=== PATIENT | male | born 1965 | race American Indian/Alaskan Native ===

== ENCOUNTER 2019-06-11 07:38 | Inpatient (IN) | payer OTHER ==
[2019-06-11] MEDS ORDERED: ASPIRIN PO ONE (07:44)
[2019-06-11 08:05] LABS: Basophils # (Auto) 0.1 K/mm3 (0.0-0.1); Eosinophils # (Auto) 0.3 K/mm3 (0.0-0.4); Eosinophils % (Auto) 5.3 % (0.0-4.3); Hematocrit 40.1 % (35.5-45.6); Hemoglobin 13.3 gm/dl (11.8-15.2); Lymphocytes # (Auto) 2.5 K/mm3 (1.2-5.4); Lymphocytes % (Auto) 39.7 % (13.4-35.0); Mean Corpuscular HGB Conc 33 % (32-34); Mean Corpuscular Volume 83 fl (84-94); Monocytes # (Auto) 0.7 K/mm3 (0.0-0.8); Monocytes % (Auto) 10.4 % (0.0-7.3); Platelet Count 238 K/mm3 (140-440); Red Blood Count 4.85 M/mm3 (3.65-5.03); Red Cell Distribution Width 14.1 % (13.2-15.2)
--- NOTE | 2019-06-11 08:08 | XRay Report ---
CHEST 1 VIEW 06/11/2019 7:59 AM INDICATION / CLINICAL INFORMATION: Chest Pain. COMPARISON: None available. FINDINGS: SUPPORT DEVICES: None. HEART / MEDIASTINUM: No significant abnormality. LUNGS / PLEURA: No significant pulmonary or pleural abnormality. No pneumothorax. ADDITIONAL FINDINGS: No significant additional findings. IMPRESSION: No acute findings. Signer Name: Nestor Mock MD Signed: 06/11/2019 8:03 AM Workstation Name: [id number]
[2019-06-11 08:25] LABS: BUN/Creatinine Ratio 14; Blood Urea Nitrogen 10 mg/dL (9-20); Calcium 9.6 mg/dL (8.4-10.2); Hemolysis Index 14
--- NOTE | 2019-06-11 08:58 | Emergency Department Report ---
ED Chest Pain HPI - General Chief Complaint: Chest Pain Stated Complaint: CHEST PAIN/RT LEG/LFT ARM PAIN Time Seen by Provider: 06/11/19 08:28 Source: patient Mode of arrival: Ambulatory Limitations: No Limitations - History of Present Illness Initial Comments: 53-year-old male with past medical history of non-insulin dependent diabetes, asthma, diabetic neuropathy, hypertension, obesity, and ? heart valve defect presents to the hospital complaints chest pain 2 days. Pain is constant across chest. Pain is described as a moderate tightness with associated tightness to left arm. Pain is worse with palpation and movement. Denies shortness of fany ath. Did have episode of nausea vomiting yesterday. He complains of chronic right knee pain secondary to arthritis. He denies calf tenderness or unilateral leg edema. Patient was incarcerated in [place] for 5 years and released in February. He just ran out of his mediations prescribed by the senior living one day ago. He supposed take lisinopril and metformin. He does not take aspirin daily. He denies smoking or drug use. Positive family history of CAD. 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 Apparently his father had a similar defect. Severity scale (0 -10): 6 - Related Data Allergies Allergy/AdvReac Type Severity Reaction Status Date / Time No Known Allergies Allergy Verified 06/11/19 08:32 Heart Score - HEART Score History: Moderately suspicious EKG: Non-specific Age: 45-65 Risk factors: > 3 risk factors or hx of atherosclerotic disease Troponin: < normal limit HEART Score: 5 ED Review of Systems ROS: Stated complaint: CHEST PAIN/RT LEG/LFT ARM PAIN Other details as noted in HPI Comment: All other systems reviewed and negative ED Past Medical Hx - Past Medical History Hx Diabetes: Yes Hx Asthma: Yes Additional medical history: Diabetic neuropathy - Surgical History Past Surgical History?: No - Social History Smoking Status: Never Smoker Substance Use Type: None ED Physical Exam - General Limitations: No Limitations - Other Other exam information: General: No limitations, patient is alert in no acute distress Head exam: Atraumatic, normocephalic Eyes exam: Normal appearance, pupils equal reactive to light, extraocular movements intact ENT: Moist mucous membrane, normal oropharynx Neck exam: Normal inspection, full range of motion, no meningismus nontender Respiratory exam: Clear to auscultation bilateral, no wheezes, rales, crackles Cardiovascular: Normal rate and rhythm, normal heart sounds. Tenderness to bilateral chest wall Abdomen: Soft, nondistended, and nontender, with normal bowel sounds, no rebound, or guarding Extremity: Full range of motion normal inspection no deformity. Pain with movement of right knee. No calf tenderness or edema. Right ankle monitoring bracelet Back: Normal Inspection, full range of motion, no tenderness Neurologic: Alert, oriented x3, cranial nerves intact, no motor or sensory deficit Psychiatric: normal affect, normal mood Skin: Warm, dry, intact ED Course Vital Signs 06/11/19 06/11/19 06/11/19 07:43 08:11 08:15 Temperature 97.9 F Pulse Rate 82 84 Respiratory 17 17 Rate Blood Pressure 163/100 Blood Pressure 183/106 [Left] O2 Sat by Pulse 98 100 100 Oximetry 06/11/19 08:17 Temperature Pulse Rate Respiratory 12 Rate Blood Pressure Blood Pressure [Left] O2 Sat by Pulse 100 Oximetry KOBE score - Kobe Score Age > 65: (0) No Aspirin use within the Past 7 Days: (0) No 3 or more CAD Risk Factors: (1) Yes 2 or more Angina events in past 24 hrs: (1) Yes Known CAD with more than 50% Stenosis: (0) No Elevated Cardiac Markers: (0) No ST Deviation Greater than 0.5mm: (0) No KOBE Score: 2 ED Medical Decision Making - Lab Data Result diagrams: 06/11/19 07:50 06/11/19 07:50 Lab Results 06/11/19 06/11/19 Range/Units 07:50 07:50 WBC 6.4 (4.5-11.0) K/mm3 RBC 4.85 (3.65-5.03) M/mm3 Hgb 13.3 (11.8-15.2) gm/dl Hct 40.1 (35.5-45.6) % MCV 83 L (84-94) fl MCH 27 L (28-32) pg MCHC 33 (32-34) % RDW 14.1 (13.2-15.2) % Plt Count 238 (140-440) K/mm3 Lymph % (Auto) 39.7 H (13.4-35.0) % [place] % (Auto) 10.4 H (0.0-7.3) % Eos % (Auto) 5.3 H (0.0-4.3) % Baso % (Auto) 1.0 (0.0-1.8) % Lymph # 2.5 (1.2-5.4) K/mm3 [place] # 0.7 (0.0-0.8) K/mm3 Eos # 0.3 (0.0-0.4) K/mm3 Baso # 0.1 (0.0-0.1) K/mm3 Seg Neutrophils % 43.6 (40.0-70.0) % Seg Neutrophils # 2.8 (1.8-7.7) K/mm3 Sodium 142 (137-145) mmol/L Potassium 4.1 (3.6-5.0) mmol/L Chloride 103.0 (98-107) mmol/L Carbon Dioxide 28 (22-30) mmol/L Anion Gap 15 mmol/L BUN 10 (9-20) mg/dL Creatinine 0.7 L (0.8-1.5) mg/dL Estimated GFR > 60 ml/min BUN/Creatinine Ratio 14 % Glucose 141 H (75-100) mg/dL Calcium 9.6 (8.4-10.2) mg/dL Troponin T < 0.010 (0.00-0.029) ng/mL - EKG Data -: EKG Interpreted by Ct EKG shows normal: sinus rhythm, axis (qrs 2), QRS complexes (qrsd 81), ST-T waves (no stemi) Rate: normal (75) - EKG Data When compared to previous EKG there are: previous EKG unavailable - Radiology Data Radiology results: report reviewed cxr: naf - Medical Decision Making Patient describes chest tightness without shortness of breath but also has nausea, vomiting and left arm symptoms. Several cardiac risk factors. Reports medication noncompliant. Will admit for further inpatient cardiac evaluation - Differential Diagnosis costochondritis, VA, unstable angina, atypical chest pain, pulmonary emboli Critical Care Time: No Critical care attestation.: If time is entered above; I have spent that time in minutes in the direct care of this critically ill patient, excluding procedure time. ED Disposition Clinical Impression: Chest pain, HTN (hypertension), Diabetes, Noncompliance with medication regimen Disposition: OP ADMIT IP TO THIS HOSP Is pt being admited?: Yes Does the pt Need Aspirin: Yes Condition: Stable Time of Disposition: 08:57 (Dr Mullins/hosp)
[2019-06-11] MEDS: HumaLOG SUB-Q SCH (17:58)
[2019-06-12] MEDS: HumaLOG SUB-Q SCH ×2 (00:06→09:02)
[2019-06-12] MEDS ORDERED: TYLENOL PO PRN (00:12)
[2019-06-12] MEDS ORDERED: SODIUM CHLORIDE FLUSH SYRINGE 10 ML IV PRN (00:12)
[2019-06-12] MEDS ORDERED: PERCOCET 5/325 PO PRN (00:12)
[2019-06-12 05:02] VITALS: BP 141/94
[2019-06-12 05:47] LABS: Creatine Kinase MB 4.1 ng/mL (0.0-4.0)
[2019-06-12] MEDS ORDERED: LEXISCAN IV ONE ×2 (07:49→07:55)
--- NOTE | 2019-06-12 14:46 | Treadmill Report ---
INDICATION: Chest pain. ORDERING PHYSICIAN: Sudarshan Mullins MD FINDINGS: This is a suboptimal quality study due to motion artifact noted on the stress imaging portion. There is evidence of a small and moderately reversible apical and mid inferior wall defect. Diaphragmatic attenuation cannot be excluded. The left ventricular systolic function is measured at 53% with normal wall motion and wall thickening on gated imaging. The left ventricular size is mildly dilated. IMPRESSION: 1. Suboptimal perfusion scan limited by motion artifact noted on the rest and stress imaging as well as increased liver uptake with potential attenuation of the inferior wall. 2. There is evidence of a small moderately reversible apical and mid inferior wall defect. 3. Mildly dilated left ventricle with an ejection fraction measured at 53% and normal wall motion. Clinical correlation is recommended. [facility]# [id number] DAVE/RISHI
--- NOTE | 2019-06-12 18:11 | History and Physical Report ---
History of Present Illness Date of examination: 06/12/19 Date of admission: 06/11/19 09:04 Chief complaint: Chest pain for 2 days History of present illness: 53-year-old male with past medical history of non-insulin dependent diabetes, asthma, diabetic neuropathy, hypertension, obesity, and heart valve defect presents to the hospital complaints chest pain 2 days. Pain is constant across chest. Pain is described as a moderate tightness with associated tightness to left arm. Pain is worse with palpation and movement. Denies shortness of breath. Did have episode of nausea vomiting yesterday. He complains of chronic right knee pain secondary to arthritis. He is supposed take lisinopril and metformin. He does not take aspirin daily. Severity scale (0 -10): 6 Past Medical History Hx Diabetes: Yes Hx Asthma: Yes Additional medical history: Diabetic neuropathy Surgical History Past Surgical History?: No Social History Smoking Status: Never Smoker Substance Use Type: None Review of Systems ROS: Stated complaint: CHEST PAIN/RT LEG/LFT ARM PAIN Other details as noted in HPI Comment: All other systems reviewed and negative Medications and Allergies Allergies Allergy/AdvReac Type Severity Reaction Status Date / Time No Known Allergies Allergy Verified 06/11/19 08:32 Home Medications Medication Instructions Recorded Confirmed Last Taken Type Lisinopril [Zestril TAB] 10 mg PO QDAY 06/11/19 06/11/19 Unknown History Metformin HCl [metFORMIN] 1,000 mg PO BID 06/11/19 06/11/19 Unknown History glipiZIDE [Glucotrol] 5 mg PO QDAY 06/11/19 06/11/19 Unknown History Exam - Constitutional Vitals: Temp Pulse Resp BP Pulse Ox 98.1 F 87 16 141/94 94 06/12/19 03:59 06/12/19 08:00 06/12/19 03:59 06/12/19 03:59 06/12/19 03:59 General appearance: Present: no acute distress, well-nourished - EENT Eyes: Present: PERRL ENT: hearing intact, clear oral mucosa - Neck Neck: Present: supple, normal ROM - Respiratory Respiratory effort: normal Respiratory: bilateral: CTA - Cardiovascular Heart rate: 78 Rhythm: regular Heart Sounds: Present: S1 & S2. Absent: rub, click - Extremities Extremities: no ischemia, pulses intact, pulses symmetrical, No edema Peripheral Pulses: within normal limits - Abdominal General gastrointestinal: Present: soft, non-tender, non-distended, normal bowel sounds Male genitourinary: Present: normal - Rectal Rectal Exam: deferred - Integumentary Integumentary: Present: clear, warm, dry - Musculoskeletal Musculoskeletal: gait normal, strength equal bilaterally - Psychiatric Psychiatric: appropriate mood/affect, intact judgment & insight - Neurologic Neurologic: CNII-XII intact, moves all extremities - Allied Health Allied health notes reviewed: nursing, case management Results - Labs CBC & Chem 7: 06/11/19 07:50 06/11/19 07:50 Labs: Laboratory Last Values WBC 6.4 K/mm3 (4.5-11.0) 06/11/19 07:50 RBC 4.85 M/mm3 (3.65-5.03) 06/11/19 07:50 Hgb 13.3 gm/dl (11.8-15.2) 06/11/19 07:50 Hct 40.1 % (35.5-45.6) 06/11/19 07:50 MCV 83 fl (84-94) L 06/11/19 07:50 MCH 27 pg (28-32) L 06/11/19 07:50 MCHC 33 % (32-34) 06/11/19 07:50 RDW 14.1 % (13.2-15.2) 06/11/19 07:50 Plt Count 238 K/mm3 (140-440) 06/11/19 07:50 Lymph % (Auto) 39.7 % (13.4-35.0) H 06/11/19 07:50 [place] % (Auto) 10.4 % (0.0-7.3) H 06/11/19 07:50 Eos % (Auto) 5.3 % (0.0-4.3) H 06/11/19 07:50 Baso % (Auto) 1.0 % (0.0-1.8) 06/11/19 07:50 Lymph # 2.5 K/mm3 (1.2-5.4) 06/11/19 07:50 [place] # 0.7 K/mm3 (0.0-0.8) 06/11/19 07:50 Eos # 0.3 K/mm3 (0.0-0.4) 06/11/19 07:50 Baso # 0.1 K/mm3 (0.0-0.1) 06/11/19 07:50 Seg Neutrophils % 43.6 % (40.0-70.0) 06/11/19 07:50 Seg Neutrophils # 2.8 K/mm3 (1.8-7.7) 06/11/19 07:50 Sodium 142 mmol/L (137-145) 06/11/19 07:50 Potassium 4.1 mmol/L (3.6-5.0) 06/11/19 07:50 Chloride 103.0 mmol/L (98-107) 06/11/19 07:50 Carbon Dioxide 28 mmol/L (22-30) 06/11/19 07:50 15 mmol/L 06/11/19 07:50 BUN 10 mg/dL (9-20) 06/11/19 07:50 0.7 mg/dL (0.8-1.5) L 06/11/19 07:50 Estimated GFR > 60 ml/min 06/11/19 07:50 14 % 06/11/19 07:50 Glucose 141 mg/dL (75-100) H 06/11/19 07:50 POC Glucose 122 (70-105) H 06/12/19 07:24 Calcium 9.6 mg/dL (8.4-10.2) 06/11/19 07:50 843 units/L (55-170) H 06/12/19 04:22 CK-MB (CK-2) 4.1 ng/mL (0.0-4.0) H 06/12/19 04:22 CK-MB (CK-2) Rel Index 0.4 (0-4) 06/12/19 04:22 < 0.010 ng/mL (0.00-0.029) 06/11/19 13:16 Cardiac Enzymes 06/12/19 Range/Units 04:22 Total Creatine Kinase 843 H (55-170) units/L CK-MB (CK-2) 4.1 H (0.0-4.0) ng/mL - Imaging and Cardiology EKG: report reviewed (Nsr ) Chest x-ray: report reviewed (naf) Assessment and Plan Advance Directives: Yes (Full code ) VTE prophylaxis?: Chemical Plan of care discussed with patient/family: Yes - Patient Problems (1) Chest pain Status: Acute Qualifiers: Chest pain type: unspecified Qualified Code(s): R07.9 - Chest pain, unspecified Plan to address problem: Chest pain work up Serial troponins and Lexiscan in Am (2) Diabetes Status: Chronic Qualifiers: Diabetes mellitus type: type 2 Plan to address problem: Cont Metformin and coverage (3) HTN (hypertension) Status: Chronic Qualifiers: Hypertension type: essential hypertension Qualified Code(s): I10 - Essential (primary) hypertension Plan to address problem: Cont antihuypertensives (4) Deep vein thrombosis (DVT) prophylaxis not tolerated by patient Status: Acute Plan to address problem: on Lovenox
--- NOTE | 2019-06-12 18:15 | Discharge Summary ---
Providers - Providers Date of Admission: 06/11/19 09:04 Date of discharge: 06/12/19 Attending physician: ANA LUISA CAROLINA [facility] Condition: Stable Hospital course: - Patient Problems (1) Chest pain Status: Acute Qualifiers: Chest pain type: unspecified Qualified Code(s): R07.9 - Chest pain, unspecified Plan to address problem Lexiscan --slight reversible defect in apical portion Needs follow up with cardiology Patient signed AMA (2) Diabetes Status: Chronic Qualifiers: Diabetes mellitus type: type 2 Plan to address problem: Cont Metformin and coverage (3) HTN (hypertension) Status: Chronic Qualifiers: Hypertension type: essential hypertension Qualified Code(s): I10 - Essential (primary) hypertension Plan to address problem: Cont antihuypertensives Disposition: DC- TO HOME OR SELFCARE - Discharge Diagnoses (1) Chest pain Status: Acute Qualifiers: Chest pain type: unspecified Qualified Code(s): R07.9 - Chest pain, unspecified (2) Diabetes Status: Chronic Qualifiers: Diabetes mellitus type: type 2 (3) HTN (hypertension) Status: Chronic Qualifiers: Hypertension type: essential hypertension Qualified Code(s): I10 - Essential (primary) hypertension (4) Deep vein thrombosis (DVT) prophylaxis not tolerated by patient Status: Acute Core Measure Documentation - Palliative Care Palliative Care/ Comfort Measures: Not Applicable - Core Measures Any of the following diagnoses?: none Exam - Constitutional Vitals: Temp Pulse Resp BP Pulse Ox 98.1 F 87 16 141/94 94 06/12/19 03:59 06/12/19 08:00 06/12/19 03:59 06/12/19 03:59 06/12/19 03:59 General appearance: Present: no acute distress, well-nourished - EENT Eyes: Present: PERRL ENT: hearing intact, clear oral mucosa - Neck Neck: Present: supple, normal ROM - Respiratory Respiratory effort: normal Respiratory: bilateral: CTA - Cardiovascular Heart Sounds: Present: S1 & S2. Absent: rub, click - Extremities Extremities: pulses symmetrical, No edema Peripheral Pulses: within normal limits - Abdominal General gastrointestinal: Present: soft, non-tender, non-distended, normal bowel sounds Male genitourinary: Present: normal - Integumentary Integumentary: Present: clear, warm, dry - Musculoskeletal Musculoskeletal: gait normal, strength equal bilaterally - Psychiatric Psychiatric: appropriate mood/affect, intact judgment & insight - Neurologic Neurologic: CNII-XII intact, moves all extremities Plan Activity: no restrictions Diet: low cholesterol, low salt, diabetic [facility]Primary Care Provider[facility] - 3-5 Days Forms: AMA Form
== END 2019-06-12 11:05 | disposition left against medical advice (07) | DRG 313 ==
LOC: ED 07:38 → 4A 09:04
PROVIDERS: ADMIT Internal Medicine; ATTEND Internal Medicine
DX: R07.89 Other chest pain (principal); I10 Essential (primary) hypertension; J45.909 Unspecified asthma, uncomplicated; E11.40 Type 2 diabetes mellitus with diabetic neuropathy, unspecified; E66.9 Obesity, unspecified; Z91.19 Patient's noncompliance with other medical treatment and regimen; Z53.21 Procedure and treatment not carried out due to patient leaving prior to being seen by health care provider; M17.11 Unilateral primary osteoarthritis, right knee; Z91.14 Patient's other noncompliance with medication regimen; Z68.36 Body mass index [BMI] 36.0-36.9, adult
CPT/HCPCS: 36415; 71045; 78452; 80048; 82550; 82553; 82962; 84484; 85025; 93005; 93010; 93017; 96374; G0378; A9502; J2785

== ENCOUNTER 2019-07-02 10:10 | Emergency (ER) | payer SELFPAY ==
[2019-07-02 10:44] VITALS: BP 155/95
[2019-07-02] MEDS ORDERED: NORCO 5/325 PO STA (16:20)
[2019-07-02] MEDS ORDERED: ROCEPHIN IM STA (16:20)
[2019-07-02] MEDS ORDERED: XYLOCAINE 1% MPF 5 mL INFILTRATI ONE (16:20)
--- NOTE | 2019-07-02 16:31 | Emergency Department Report ---
Abscess Boil HPI - HPI Chief Complaint: Extremity Injury, Lower Stated Complaint: RT LEG BITE/PAIN Time Seen by Provider: 07/02/19 13:45 Duration: >1 Week Location: Lower Extremity (right lower thigh posterior aspect) History: Yes Pain, Yes Purulent Drainage, Yes Insect Bite HPI: 53-year-old -[place] male with the abscess wound to the right posterior leg has been present just overall weak, not responding to his soap and water and ibuprofen. Reports that a wound was have a mild discharge as well. Home Medications: Home Medications Medication Instructions Recorded Confirmed Last Taken Lisinopril [Zestril TAB] 10 mg PO QDAY 06/11/19 06/11/19 Unknown Metformin HCl [metFORMIN] 1,000 mg PO BID 06/11/19 06/11/19 Unknown glipiZIDE [Glucotrol] 5 mg PO QDAY 06/11/19 06/11/19 Unknown Previous Rx's Medication Instructions Recorded Last Taken Type Chlorhexidine Gluconate [Hibiclens] 10 ml TP BID #240 liquid 07/02/19 Unknown Rx Ketorolac [Toradol] 10 mg PO Q6H PRN #15 tablet 07/02/19 Unknown Rx Ondansetron [Zofran ODT TAB] 8 mg PO Q12HR #14 tab.rapdis 07/02/19 Unknown Rx Sulfamethoxazole/Trimethoprim 2 each PO BID #40 tablet 07/02/19 Unknown Rx [Bactrim DS TAB] cephALEXin [Keflex] 500 mg PO Q6HR #40 capsule 07/02/19 Unknown Rx Allergies/Adverse Reactions: Allergies Allergy/AdvReac Type Severity Reaction Status Date / Time No Known Allergies Allergy Verified 07/02/19 10:23 ED Review of Systems ROS: Stated complaint: RT LEG BITE/PAIN Other details as noted in HPI Comment: All other systems reviewed and negative ED Past Medical Hx - Past Medical History Previous Medical History?: Yes Hx Diabetes: Yes Hx Asthma: Yes Hx HIV: No Additional medical history: Diabetic neuropathy - Surgical History Past Surgical History?: No - Social History Smoking Status: Former Smoker Substance Use Type: None - Medications Home Medications: Home Medications Medication Instructions Recorded Confirmed Last Taken Type Lisinopril [Zestril TAB] 10 mg PO QDAY 06/11/19 06/11/19 Unknown History Metformin HCl [metFORMIN] 1,000 mg PO BID 06/11/19 06/11/19 Unknown History glipiZIDE [Glucotrol] 5 mg PO QDAY 06/11/19 06/11/19 Unknown History Chlorhexidine Gluconate [Hibiclens] 10 ml TP BID #240 liquid 07/02/19 Unknown Rx Ketorolac [Toradol] 10 mg PO Q6H PRN #15 tablet 07/02/19 Unknown Rx Ondansetron [Zofran ODT TAB] 8 mg PO Q12HR #14 tab.rapdis 07/02/19 Unknown Rx Sulfamethoxazole/Trimethoprim 2 each PO BID #40 tablet 07/02/19 Unknown Rx [Bactrim DS TAB] cephALEXin [Keflex] 500 mg PO Q6HR #40 capsule 07/02/19 Unknown Rx ED Abscess Boil Physical Exam - Exam General: Vital signs noted. No distress. Alert and acting appropriately. Size: 3 cm Exam: Yes Tenderness, Yes Surrounding Cellulites/Erythema, Yes Normal Neurologic Exam, Yes Normal Circulation, No Fluctuance, No Lymphangitis, No Crepitation, No Heart Murmur Exam: 2.5 cm wound to the posterior thigh with some phalanges and induration. No tenderness is noted. No lymphadenopathy. No lymphangitis. I & D Note - I & D Note I & D Note: Discussed the regulation for incision and drainage. Patient opted to half antibodies and reevaluation ED Course Vital Signs 07/02/19 10:42 Temperature 97.9 F Pulse Rate 95 H Respiratory 18 Rate Blood Pressure 155/95 O2 Sat by Pulse 97 Oximetry Critical care attestation.: If time is entered above; I have spent that time in minutes in the direct care of this critically ill patient, excluding procedure time. ED Disposition Clinical Impression: Abscess, Cellulitis Disposition: DC-01 TO HOME OR SELFCARE Is pt being admited?: No Does the pt Need Aspirin: No Condition: Stable Instructions: Cellulitis (ED), Abscess (ED) Referrals: DONTAE AMIN MD [Primary Care Provider] - 3-5 Days (Wound reevaluation and 40-72 hours)
[2019-07-02] MEDS ORDERED: TRIPLE ANTIBIOTIC TP ONE ×2 (16:44→16:45)
== END 2019-07-02 16:57 | disposition home or self-care (01) ==
LOC: ED 10:10
DX: L02.415 Cutaneous abscess of right lower limb (principal); L03.115 Cellulitis of right lower limb; J45.909 Unspecified asthma, uncomplicated; E11.65 Type 2 diabetes mellitus with hyperglycemia; Z87.891 Personal history of nicotine dependence; Z79.899 Other long term (current) drug therapy
CPT/HCPCS: 96372; 99282; J0696; A6250

== ENCOUNTER 2021-09-03 10:18 | Emergency (ER) | payer SELFPAY ==
[2021-09-03] MEDS ORDERED: SODIUM CHLORIDE 0.9% 1000 ML 1,000 ML IV ONE (10:29)
[2021-09-03] MEDS ORDERED: INSULIN REGULAR, HUMAN 100 UNITS/1 ML IV ONE (10:29)
[2021-09-03 11:10] LABS: Basophils # (Auto) 0.1 K/mm3 (0.0-0.1); Basophils % (Auto) 1.3 % (0.0-1.8); Eosinophils # (Auto) 0.2 K/mm3 (0.0-0.4); Eosinophils % (Auto) 4.6 % (0.0-4.3); Hemoglobin 14.3 gm/dl (11.8-15.2); Lymphocytes # (Auto) 1.6 K/mm3 (1.2-5.4); Lymphocytes % (Auto) 36.9 % (13.4-35.0); Mean Corpuscular HGB Conc 33 % (32-34); Mean Corpuscular Volume 83 fl (84-94); Monocytes # (Auto) 0.4 K/mm3 (0.0-0.8); Monocytes % (Auto) 9.2 % (0.0-7.3); Platelet Count 215 K/mm3 (140-440); Red Blood Count 5.19 M/mm3 (3.65-5.03); Red Cell Distribution Width 13.3 % (13.2-15.2)
[2021-09-03 11:17] LABS: BUN/Creatinine Ratio 11; Blood Urea Nitrogen 9 mg/dL (9-20); Hemolysis Index 2
[2021-09-03 11:39] LABS: Bilirubin,Urine NEG (Negative); Blood,Urine NEG (Negative); Color,Urine Straw (Yellow); Protein,Urine <15 mg/dL mg/dL (Negative); Urobilinogen,Urine < 2.0 mg/dL (<2.0)
--- NOTE | 2021-09-03 12:07 | Emergency Department Report ---
ED General Adult HPI - General Chief complaint: Hyperglycemia Stated complaint: NEEDS DIABETIC MEDICINE Time Seen by Provider: 09/03/21 10:26 Source: patient Mode of arrival: Ambulatory Limitations: No Limitations - History of Present Illness Initial comments: This is a 55-year-old male nontoxic, well nourished in appearance, no acute signs of distress presents to the ED with c/o of polyuria and dry mouth times several days. Patient stated has been out of his Metformin 1000 mg twice daily for several days. Patient otherwise denies any other complaints or symptoms. Denies any flank or back pain. Denies abdominal pain. Denies any nausea, vomiting, chest pain, shortness of breath, headache, stiff neck, abdominal pain, pelvic pain fever or chills. Patient denies any allergies. -: days(s) Severity scale (0 -10): 0 Consistency: constant Improves with: none Worsens with: none Associated Symptoms: denies other symptoms. denies: confusion, chest pain, cough, diaphoresis, fever/chills, headaches, loss of appetite, malaise, nausea/vomiting, rash, seizure, shortness of breath, syncope, weakness Treatments Prior to Arrival: none - Related Data Home Medications Medication Instructions Recorded Confirmed Last Taken glipiZIDE [Glucotrol] 5 mg PO QDAY 06/11/19 06/11/19 Unknown lisinopriL [Zestril TAB] 10 mg PO QDAY 06/11/19 06/11/19 Unknown Previous Rx's Medication Instructions Recorded Last Taken Type Chlorhexidine Gluconate [Hibiclens] 10 ml TP BID #240 liquid 07/02/19 Unknown Rx Ketorolac [Toradol] 10 mg PO Q6H PRN #15 tablet 07/02/19 Unknown Rx Ondansetron [Zofran ODT TAB] 8 mg PO Q12HR #14 tab.rapdis 07/02/19 Unknown Rx Sulfamethoxazole/Trimethoprim 2 each PO BID #40 tablet 07/02/19 Unknown Rx [Bactrim DS TAB] cephALEXin [Keflex] 500 mg PO Q6HR #40 capsule 07/02/19 Unknown Rx Metformin HCl [metFORMIN] 1,000 mg PO BID #60 09/03/21 Unknown Rx Allergies Allergy/AdvReac Type Severity Reaction Status Date / Time No Known Allergies Allergy Verified 09/03/21 10:25 ED Review of Systems ROS: Stated complaint: NEEDS DIABETIC MEDICINE Other details as noted in HPI Comment: All other systems reviewed and negative Constitutional: denies: chills, fever Eyes: denies: eye pain, eye discharge, vision change ENT: denies: ear pain, throat pain Respiratory: denies: cough, shortness of breath, wheezing Cardiovascular: denies: chest pain, palpitations Endocrine: no symptoms reported Gastrointestinal: denies: abdominal pain, nausea, vomiting, diarrhea, constipation, hematemesis, melena, hematochezia Genitourinary: denies: urgency, dysuria, frequency, hematuria, discharge, testicular pain, testicular mass Musculoskeletal: denies: back pain, joint swelling, arthralgia Skin: denies: rash, lesions Neurological: denies: headache, weakness, paresthesias Psychiatric: denies: anxiety, depression Hematological/Lymphatic: denies: easy bleeding, easy bruising ED Past Medical Hx - Past Medical History Hx Diabetes: Yes Hx Asthma: Yes Hx HIV: No Additional medical history: Diabetic neuropathy - Social History Smoking Status: Former Smoker Substance Use Type: None - Medications Home Medications: Home Medications Medication Instructions Recorded Confirmed Last Taken Type glipiZIDE [Glucotrol] 5 mg PO QDAY 06/11/19 06/11/19 Unknown History lisinopriL [Zestril TAB] 10 mg PO QDAY 06/11/19 06/11/19 Unknown History Chlorhexidine Gluconate [Hibiclens] 10 ml TP BID #240 liquid 07/02/19 Unknown Rx Ketorolac [Toradol] 10 mg PO Q6H PRN #15 tablet 07/02/19 Unknown Rx Ondansetron [Zofran ODT TAB] 8 mg PO Q12HR #14 tab.rapdis 07/02/19 Unknown Rx Sulfamethoxazole/Trimethoprim 2 each PO BID #40 tablet 07/02/19 Unknown Rx [Bactrim DS TAB] cephALEXin [Keflex] 500 mg PO Q6HR #40 capsule 07/02/19 Unknown Rx Metformin HCl [metFORMIN] 1,000 mg PO BID #60 09/03/21 Unknown Rx ED Physical Exam - General Limitations: No Limitations General appearance: alert, in no apparent distress - Head Head exam: Present: atraumatic, normocephalic - Eye Eye exam: Present: normal appearance - Neck Neck exam: Present: normal inspection, full ROM. Absent: lymphadenopathy - Respiratory Respiratory exam: Absent: respiratory distress - Cardiovascular Cardiovascular Exam: Present: regular rate - GI/Abdominal GI/Abdominal exam: Present: soft, normal bowel sounds. Absent: distended, tenderness - Extremities Exam Extremities exam: Present: full ROM - Back Exam Back exam: Present: normal inspection, full ROM. Absent: tenderness, CVA tenderness (R), CVA tenderness (L), muscle spasm, paraspinal tenderness, vertebral tenderness, rash noted - Neurological Exam Neurological exam: Present: alert, oriented X3, normal gait - Psychiatric Psychiatric exam: Present: normal affect, normal mood - Skin Skin exam: Present: warm, dry, intact, normal color. Absent: rash ED Course Vital Signs 09/03/21 10:24 Temperature 98.1 F Pulse Rate 94 H Respiratory 18 Rate Blood Pressure 160/88 O2 Sat by Pulse 97 Oximetry - Reevaluation(s) Reevaluation #1: 09/03/21 12:05 Patient is speaking in full sentences with no signs of distress noted. ED Medical Decision Making - Lab Data Result diagrams: 09/03/21 10:32 09/03/21 10:32 Lab Results 09/03/21 09/03/21 09/03/21 Range/Units 10:23 10:32 10:32 WBC 4.4 L (4.5-11.0) K/mm3 RBC 5.19 H (3.65-5.03) M/mm3 Hgb 14.3 (11.8-15.2) gm/dl Hct 43.0 (35.5-45.6) % MCV 83 L (84-94) fl MCH 28 (28-32) pg MCHC 33 (32-34) % RDW 13.3 (13.2-15.2) % Plt Count 215 (140-440) K/mm3 Lymph % (Auto) 36.9 H (13.4-35.0) % [place] % (Auto) 9.2 H (0.0-7.3) % Eos % (Auto) 4.6 H (0.0-4.3) % Baso % (Auto) 1.3 (0.0-1.8) % Lymph # (Auto) 1.6 (1.2-5.4) K/mm3 [place] # (Auto) 0.4 (0.0-0.8) K/mm3 Eos # (Auto) 0.2 (0.0-0.4) K/mm3 Baso # (Auto) 0.1 (0.0-0.1) K/mm3 Seg Neutrophils % 48.0 (40.0-70.0) % Seg Neutrophils # 2.1 (1.8-7.7) K/mm3 VBG pH (7.320-7.420) Sodium 137 (137-145) mmol/L Potassium 4.3 (3.6-5.0) mmol/L Chloride 100.4 (98-107) mmol/L Carbon Dioxide 26 (22-30) mmol/L Anion Gap 15 mmol/L BUN 9 (9-20) mg/dL Creatinine 0.8 (0.8-1.3) mg/dL Estimated GFR > 60 ml/min BUN/Creatinine Ratio 11 % Glucose 363 H (75-100) mg/dL POC Glucose 355 H (70-105) mg/dL Calcium 10.0 (8.4-10.2) mg/dL Urine Color (Yellow) Urine Turbidity (Clear) Urine pH (5.0-7.0) Ur Specific [place] (1.003-1.030) Urine Protein (Negative) mg/dL Urine Glucose (UA) (Negative) mg/dL Urine Ketones (Negative) mg/dL Urine Blood (Negative) Urine Nitrite (Negative) Urine Bilirubin (Negative) Urine Urobilinogen (<2.0) mg/dL Ur Leukocyte Esterase (Negative) Urine WBC (Auto) (0.0-6.0) /HPF Urine RBC (Auto) (0.0-6.0) /HPF 09/03/21 09/03/21 Range/Units 10:32 11:29 WBC (4.5-11.0) K/mm3 RBC (3.65-5.03) M/mm3 Hgb (11.8-15.2) gm/dl Hct (35.5-45.6) % MCV (84-94) fl MCH (28-32) pg MCHC (32-34) % RDW (13.2-15.2) % Plt Count (140-440) K/mm3 Lymph % (Auto) (13.4-35.0) % [place] % (Auto) (0.0-7.3) % Eos % (Auto) (0.0-4.3) % Baso % (Auto) (0.0-1.8) % Lymph # (Auto) (1.2-5.4) K/mm3 [place] # (Auto) (0.0-0.8) K/mm3 Eos # (Auto) (0.0-0.4) K/mm3 Baso # (Auto) (0.0-0.1) K/mm3 Seg Neutrophils % (40.0-70.0) % Seg Neutrophils # (1.8-7.7) K/mm3 VBG pH 7.361 (7.320-7.420) Sodium (137-145) mmol/L Potassium (3.6-5.0) mmol/L Chloride (98-107) mmol/L Carbon Dioxide (22-30) mmol/L Anion Gap mmol/L BUN (9-20) mg/dL Creatinine (0.8-1.3) mg/dL Estimated GFR ml/min BUN/Creatinine Ratio % Glucose (75-100) mg/dL POC Glucose (70-105) mg/dL Calcium (8.4-10.2) mg/dL Urine Color Straw (Yellow) Urine Turbidity Clear (Clear) Urine pH 6.0 (5.0-7.0) Ur Specific [place] 1.029 (1.003-1.030) Urine Protein <15 mg/dl (Negative) mg/dL Urine Glucose (UA) >=500 (Negative) mg/dL Urine Ketones Tr (Negative) mg/dL Urine Blood Neg (Negative) Urine Nitrite Neg (Negative) Urine Bilirubin Neg (Negative) Urine Urobilinogen < 2.0 (<2.0) mg/dL Ur Leukocyte Esterase Neg (Negative) Urine WBC (Auto) 2.0 (0.0-6.0) /HPF Urine RBC (Auto) 1.0 (0.0-6.0) /HPF Lab Results 09/03/21 09/03/21 09/03/21 Range/Units 10:23 10:32 10:32 WBC 4.4 L (4.5-11.0) K/mm3 RBC 5.19 H (3.65-5.03) M/mm3 Hgb 14.3 (11.8-15.2) gm/dl Hct 43.0 (35.5-45.6) % MCV 83 L (84-94) fl MCH 28 (28-32) pg MCHC 33 (32-34) % RDW 13.3 (13.2-15.2) % Plt Count 215 (140-440) K/mm3 Lymph % (Auto) 36.9 H (13.4-35.0) % [place] % (Auto) 9.2 H (0.0-7.3) % Eos % (Auto) 4.6 H (0.0-4.3) % Baso % (Auto) 1.3 (0.0-1.8) % Lymph # (Auto) 1.6 (1.2-5.4) K/mm3 [place] # (Auto) 0.4 (0.0-0.8) K/mm3 Eos # (Auto) 0.2 (0.0-0.4) K/mm3 Baso # (Auto) 0.1 (0.0-0.1) K/mm3 Seg Neutrophils % 48.0 (40.0-70.0) % Seg Neutrophils # 2.1 (1.8-7.7) K/mm3 VBG pH (7.320-7.420) Sodium 137 (137-145) mmol/L Potassium 4.3 (3.6-5.0) mmol/L Chloride 100.4 (98-107) mmol/L Carbon Dioxide 26 (22-30) mmol/L Anion Gap 15 mmol/L BUN 9 (9-20) mg/dL Creatinine 0.8 (0.8-1.3) mg/dL Estimated GFR > 60 ml/min BUN/Creatinine Ratio 11 % Glucose 363 H (75-100) mg/dL POC Glucose 355 H (70-105) mg/dL Calcium 10.0 (8.4-10.2) mg/dL Urine Color (Yellow) Urine Turbidity (Clear) Urine pH (5.0-7.0) Ur Specific [place] (1.003-1.030) Urine Protein (Negative) mg/dL Urine Glucose (UA) (Negative) mg/dL Urine Ketones (Negative) mg/dL Urine Blood (Negative) Urine Nitrite (Negative) Urine Bilirubin (Negative) Urine Urobilinogen (<2.0) mg/dL Ur Leukocyte Esterase (Negative) Urine WBC (Auto) (0.0-6.0) /HPF Urine RBC (Auto) (0.0-6.0) /HPF 09/03/21 09/03/21 09/03/21 Range/Units 10:32 11:29 12:12 WBC (4.5-11.0) K/mm3 RBC (3.65-5.03) M/mm3 Hgb (11.8-15.2) gm/dl Hct (35.5-45.6) % MCV (84-94) fl MCH (28-32) pg MCHC (32-34) % RDW (13.2-15.2) % Plt Count (140-440) K/mm3 Lymph % (Auto) (13.4-35.0) % [place] % (Auto) (0.0-7.3) % Eos % (Auto) (0.0-4.3) % Baso % (Auto) (0.0-1.8) % Lymph # (Auto) (1.2-5.4) K/mm3 [place] # (Auto) (0.0-0.8) K/mm3 Eos # (Auto) (0.0-0.4) K/mm3 Baso # (Auto) (0.0-0.1) K/mm3 Seg Neutrophils % (40.0-70.0) % Seg Neutrophils # (1.8-7.7) K/mm3 VBG pH 7.361 (7.320-7.420) Sodium (137-145) mmol/L Potassium (3.6-5.0) mmol/L Chloride (98-107) mmol/L Carbon Dioxide (22-30) mmol/L Anion Gap mmol/L BUN (9-20) mg/dL Creatinine (0.8-1.3) mg/dL Estimated GFR ml/min BUN/Creatinine Ratio % Glucose (75-100) mg/dL POC Glucose 235 H (70-105) mg/dL Calcium (8.4-10.2) mg/dL Urine Color Straw (Yellow) Urine Turbidity Clear (Clear) Urine pH 6.0 (5.0-7.0) Ur Specific [place] 1.029 (1.003-1.030) Urine Protein <15 mg/dl (Negative) mg/dL Urine Glucose (UA) >=500 (Negative) mg/dL Urine Ketones Tr (Negative) mg/dL Urine Blood Neg (Negative) Urine Nitrite Neg (Negative) Urine Bilirubin Neg (Negative) Urine Urobilinogen < 2.0 (<2.0) mg/dL Ur Leukocyte Esterase Neg (Negative) Urine WBC (Auto) 2.0 (0.0-6.0) /HPF Urine RBC (Auto) 1.0 (0.0-6.0) /HPF - Medical Decision Making 55-year-old male who presents with diabetes and noncompliant with medication. Patient is stable and was examined by me. Labs has been obtained and does not show patient is in DKA. Patient received medical treatment in ER and fingerstick of glucose has significantly decreased prior to discharge. I will refill patient's medication. Patient was instructed to follow-up with a primary care doctor in 3-5 days or if symptoms worsen and continue return to emergency room as soon as possible. At time of discharge, the patient does not seem toxic or ill in appearance. No acute signs of distress noted. Patient agrees to discharge treatment plan of care. No further questions noted by the patient. Critical care attestation.: If time is entered above; I have spent that time in minutes in the direct care of this critically ill patient, excluding procedure time. ED Disposition Clinical Impression: Noncompliance with medication regimen Diabetes Qualifiers: Diabetes mellitus type: type 2 Diabetes mellitus group home insulin use: unspecified adjunct faculty for medical terminology insulin use status Diabetes mellitus complication status: without complication Qualified Code(s): E11.9 - Type 2 diabetes mellitus without complications Disposition: 01 HOME / SELF CARE / HOMELESS Is pt being admited?: No Does the pt Need Aspirin: No Condition: Stable Instructions: Type 2 Diabetes Mellitus, Diagnosis, Adult, Diabetes Mellitus Type 2 in Adults (ED) Additional Instructions: Follow-up with a primary care doctor in 3-5 days or if symptoms worsen and continue return to emergency room as soon as possible. Prescriptions: Metformin HCl [metFORMIN] 1,000 mg PO BID #60 Referrals: PRIMARY MD GIULIA [Referring] - 3-5 Days OREN MAHONEY MD [Staff Physician] - 3-5 Days Forms: Work/School Release Form(ED) Time of Disposition: 12:16
[2021-09-03 12:23] VITALS: BP 149/99
== END 2021-09-03 12:41 | disposition home or self-care (01) ==
LOC: ED 10:18
DX: E11.9 Type 2 diabetes mellitus without complications (principal); R35.89 Other polyuria; Z91.19 Patient's noncompliance with other medical treatment and regimen
CPT/HCPCS: 36415; 80048; 81001; 82805; 82962; 85025; 96361; 96374; 99283; J7030; J1815

== ENCOUNTER 2022-07-08 07:02 | Emergency (ER) | payer OTHER ==
[2022-07-08] MEDS ORDERED: SODIUM CHLORIDE 0.9% 1000 ML 1,000 ML IV ONE (07:49)
[2022-07-08 08:32] LABS: Basophils # (Auto) 0.1 K/mm3 (0.0-0.1); Basophils % (Auto) 1.8 % (0.0-1.8); Eosinophils # (Auto) 0.2 K/mm3 (0.0-0.4); Eosinophils % (Auto) 4.5 % (0.0-4.3); Hematocrit 44.4 % (35.5-45.6); Hemoglobin 14.1 gm/dl (11.8-15.2); Lymphocytes # (Auto) 1.7 K/mm3 (1.2-5.4); Lymphocytes % (Auto) 35.6 % (13.4-35.0); Mean Corpuscular HGB Conc 32 % (32-34); Mean Corpuscular Volume 85 fl (84-94); Monocytes # (Auto) 0.5 K/mm3 (0.0-0.8); Monocytes % (Auto) 10.5 % (0.0-7.3); Platelet Count 220 K/mm3 (140-440); Red Cell Distribution Width 13.4 % (13.2-15.2)
[2022-07-08 08:33] LABS: BUN/Creatinine Ratio 13; Blood Urea Nitrogen 10 mg/dL (9-20); Calcium 9.8 mg/dL (8.4-10.2); Hemolysis Index 22
[2022-07-08] MEDS ORDERED: INSULIN REGULAR, HUMAN 100 UNITS/1 ML IV ONE ×2 (08:33→08:36)
[2022-07-08 08:41] LABS: Color,Urine Colorless (Yellow)
[2022-07-08 08:43] LABS: Mucus,Urine FEW /HPF
[2022-07-08 08:48] LABS: RBC,Urine < 1.0 /HPF (0.0-6.0); WBC,Urine < 1.0 /HPF (0.0-6.0)
--- NOTE | 2022-07-08 09:42 | Emergency Department Report ---
ED General Adult HPI - General Chief complaint: Hyperglycemia Stated complaint: DIABETES/KNEE PAIN Time Seen by Provider: 07/08/22 08:32 Source: patient Mode of arrival: Ambulatory Limitations: No Limitations - History of Present Illness Initial comments: 56-year-old obese male with a past medical history of chronic bilateral knee arthritis and [id number] diabetes presents to the hospital complaining of bilateral knee pain and hyperglycemia. Patient has not been noncompliant with his metformin 1000 mg twice daily for least 1 year due to lack of insurance and PMD. Patient reports frequent urination and thirst without nausea, vomiting, or weakness. Patient has chronic moderate pain to bilateral knees worse with ambulation without acute injury. Severity scale (0 -10): 10 - Related Data Home Medications Medication Instructions Recorded Confirmed Last Taken glipiZIDE [Glucotrol] 5 mg PO QDAY 06/11/19 06/11/19 Unknown lisinopriL [Zestril TAB] 10 mg PO QDAY 06/11/19 06/11/19 Unknown Previous Rx's Medication Instructions Recorded Last Taken Type Chlorhexidine Gluconate [Hibiclens] 10 ml TP BID #240 liquid 07/02/19 Unknown Rx Ketorolac [Toradol] 10 mg PO Q6H PRN #15 tablet 07/02/19 Unknown Rx Ondansetron [Zofran ODT TAB] 8 mg PO Q12HR #14 tab.rapdis 07/02/19 Unknown Rx Sulfamethoxazole/Trimethoprim 2 each PO BID #40 tablet 07/02/19 Unknown Rx [Bactrim DS TAB] cephALEXin [Keflex] 500 mg PO Q6HR #40 capsule 07/02/19 Unknown Rx Metformin HCl [metFORMIN] 1,000 mg PO BID #60 tab 07/08/22 Unknown Rx Allergies Allergy/AdvReac Type Severity Reaction Status Date / Time No Known Allergies Allergy Verified 07/08/22 07:41 ED Review of Systems ROS: Stated complaint: DIABETES/KNEE PAIN Other details as noted in HPI Comment: All other systems reviewed and negative ED Past Medical Hx - Past Medical History Hx Diabetes: Yes Hx Asthma: Yes Hx HIV: No Additional medical history: Diabetic neuropathy - Social History Smoking Status: Never Smoker Substance Use Type: Alcohol - Medications Home Medications: Home Medications Medication Instructions Recorded Confirmed Last Taken Type glipiZIDE [Glucotrol] 5 mg PO QDAY 06/11/19 06/11/19 Unknown History lisinopriL [Zestril TAB] 10 mg PO QDAY 06/11/19 06/11/19 Unknown History Chlorhexidine Gluconate [Hibiclens] 10 ml TP BID #240 liquid 07/02/19 Unknown Rx Ketorolac [Toradol] 10 mg PO Q6H PRN #15 tablet 07/02/19 Unknown Rx Ondansetron [Zofran ODT TAB] 8 mg PO Q12HR #14 tab.rapdis 07/02/19 Unknown Rx Sulfamethoxazole/Trimethoprim 2 each PO BID #40 tablet 07/02/19 Unknown Rx [Bactrim DS TAB] cephALEXin [Keflex] 500 mg PO Q6HR #40 capsule 07/02/19 Unknown Rx Metformin HCl [metFORMIN] 1,000 mg PO BID #60 tab 07/08/22 Unknown Rx ED Physical Exam - General Limitations: No Limitations - Other Other exam information: General: No acute distress Head: Atraumatic Eyes: normal appearance ENT: Moist mucous membranes Neck: Normal appearance, no midline tenderness Chest: Clear to auscultation bilaterally CV: Regular rate and rhythm Abdomen: Soft, normal bowel sounds, nontender, nondistended, no rebound or guarding Back: Normal inspection Extremity: Normal inspection, No edema or warmth to bilateral knees. Full range of motion Neuro: Alert O x 3, no facial asymmetry, speech clear, no gross motor sensory deficit Psych: Appropriate behavior Skin: No rash ED Course Vital Signs 07/08/22 07/08/22 07/08/22 07:40 08:39 10:09 Temperature 98.6 F 98.6 F 98.6 F Pulse Rate 85 80 78 Respiratory 16 20 18 Rate Blood Pressure 168/95 Blood Pressure 145/106 168/95 160/113 [Right] O2 Sat by Pulse 98 96 97 Oximetry - Reevaluation(s) Reevaluation #1: 07/08/22 10:10 glucose 260, metformin provided prior to d/c ED Medical Decision Making - Lab Data Result diagrams: 07/08/22 08:00 07/08/22 08:00 Lab Results 07/08/22 07/08/22 07/08/22 Range/Units 08:00 08:00 08:00 WBC 4.8 (4.5-11.0) K/mm3 RBC 5.20 H (3.65-5.03) M/mm3 Hgb 14.1 (11.8-15.2) gm/dl Hct 44.4 (35.5-45.6) % MCV 85 (84-94) fl MCH 27 L (28-32) pg MCHC 32 (32-34) % RDW 13.4 (13.2-15.2) % Plt Count 220 (140-440) K/mm3 Lymph % (Auto) 35.6 H (13.4-35.0) % [place] % (Auto) 10.5 H (0.0-7.3) % Eos % (Auto) 4.5 H (0.0-4.3) % Baso % (Auto) 1.8 (0.0-1.8) % Lymph # (Auto) 1.7 (1.2-5.4) K/mm3 [place] # (Auto) 0.5 (0.0-0.8) K/mm3 Eos # (Auto) 0.2 (0.0-0.4) K/mm3 Baso # (Auto) 0.1 (0.0-0.1) K/mm3 Seg Neutrophils % 47.6 (40.0-70.0) % Seg Neutrophils # 2.3 (1.8-7.7) K/mm3 VBG pH 7.323 (7.320-7.420) Sodium 130 L (137-145) mmol/L Potassium 4.9 (3.6-5.0) mmol/L Chloride 92.3 L (98-107) mmol/L Carbon Dioxide 28 (22-30) mmol/L Anion Gap 15 mmol/L BUN 10 (9-20) mg/dL Creatinine 0.8 (0.8-1.3) mg/dL Estimated GFR > 60 ml/min BUN/Creatinine Ratio 13 % Glucose 455 H (75-100) mg/dL Calcium 9.8 (8.4-10.2) mg/dL Urine Color (Yellow) Urine Turbidity (Clear) Specific [place] (Man) (1.003-1.030) Ur Protein (Man) (Negative) mg/dL Ur Ketones (Man) (Negative) Urine Bilirubin (Man) (Negative) Urine WBC (Auto) (0.0-6.0) /HPF Urine RBC (Auto) (0.0-6.0) /HPF Urine RBC (Manual) (Negative) Urine Mucus /HPF 07/08/22 Range/Units Unknown WBC (4.5-11.0) K/mm3 RBC (3.65-5.03) M/mm3 Hgb (11.8-15.2) gm/dl Hct (35.5-45.6) % MCV (84-94) fl MCH (28-32) pg MCHC (32-34) % RDW (13.2-15.2) % Plt Count (140-440) K/mm3 Lymph % (Auto) (13.4-35.0) % [place] % (Auto) (0.0-7.3) % Eos % (Auto) (0.0-4.3) % Baso % (Auto) (0.0-1.8) % Lymph # (Auto) (1.2-5.4) K/mm3 [place] # (Auto) (0.0-0.8) K/mm3 Eos # (Auto) (0.0-0.4) K/mm3 Baso # (Auto) (0.0-0.1) K/mm3 Seg Neutrophils % (40.0-70.0) % Seg Neutrophils # (1.8-7.7) K/mm3 VBG pH (7.320-7.420) Sodium (137-145) mmol/L Potassium (3.6-5.0) mmol/L Chloride (98-107) mmol/L Carbon Dioxide (22-30) mmol/L Anion Gap mmol/L BUN (9-20) mg/dL Creatinine (0.8-1.3) mg/dL Estimated GFR ml/min BUN/Creatinine Ratio % Glucose (75-100) mg/dL Calcium (8.4-10.2) mg/dL Urine Color Colorless (Yellow) Urine Turbidity Clear (Clear) Specific [place] (Man) 1.005 (1.003-1.030) Ur Protein (Man) Negative (Negative) mg/dL Ur Ketones (Man) Negative (Negative) Urine Bilirubin (Man) Negative (Negative) Urine WBC (Auto) < 1.0 (0.0-6.0) /HPF Urine RBC (Auto) < 1.0 (0.0-6.0) /HPF Urine RBC (Manual) Trace (Negative) Urine Mucus Few /HPF - Medical Decision Making 56-year-old male presents to the hospital chronic knee pain secondary to arthritis without recent trauma and hyperglycemia secondary to medication noncompliance with history of diabetes. No signs of DKA. Patient treated with IV fluids and insulin with improvement in blood glucose. Metformin initiated prior to d/c. 2-month supply of metformin will be provided and patient encouraged to follow-up with a primary care doctor or self or medical clinic. He may continue outpatient meds for arthritis related pain. Patient informed to follow-up with PMD for blood pressure recheck to determine if medications are necessary. Critical Care Time: No Critical care attestation.: If time is entered above; I have spent that time in minutes in the direct care of this critically ill patient, excluding procedure time. ED Disposition Clinical Impression: Noncompliance with medication regimen, Hyperglycemia due to type 2 diabetes me llitus, Arthritis of knee, Elevated blood pressure reading Disposition: HOME / SELF CARE / HOMELESS Is pt being admited?: No Does the pt Need Aspirin: No Condition: Stable Instructions: Diabetes Mellitus Type 2 in Adults (ED), Type 2 Diabetes Mellitus, Self Care, Adult, [id number], Osteoarthritis, Hypertension, Adult, [id number] Additional Instructions: Take the medication as prescribed. Continue [id number] medication as needed for your arthritis related pain. follow-up with your doctor or doctor/clinic provided. Return if symptoms worsen as indicated by your discharge instructions. Prescriptions: Metformin HCl [metFORMIN] 1,000 mg PO BID #60 tab Referrals: [facility] [Provider Group] - 3-5 Days ELEANOR MUSTAFA MD [Staff Physician] - 3-5 Days Time of Disposition: 10:15
[2022-07-08] MEDS ORDERED: metFORMIN 500 MG TAB PO ONE (10:11)
[2022-07-08 10:44] VITALS: BP 168/103
== END 2022-07-08 10:43 | disposition home or self-care (01) ==
LOC: ED 07:02
DX: E11.65 Type 2 diabetes mellitus with hyperglycemia (principal); M17.0 Bilateral primary osteoarthritis of knee; Z91.14 Patient's other noncompliance with medication regimen; I10 Essential (primary) hypertension; J45.909 Unspecified asthma, uncomplicated; Z79.899 Other long term (current) drug therapy
CPT/HCPCS: 36415; 80048; 81001; 82805; 82962; 85025; 96361; 96374; 99284; J7030; Q9967; J1815